=== PATIENT | male | born 1970 | race Caucasian/White ===

== ENCOUNTER 2021-07-25 20:17 | Emergency (ER) | payer OTHER ==
[2021-07-25] MEDS ORDERED: Morphine 2 MG/ML SYRINGE IVPUSH ONE ×2 (20:23→20:40)
[2021-07-25] MEDS ORDERED: Sodium Chloride 0.9% 10 ML Syringe FLUSH PRN (20:23)
[2021-07-25] MEDS ORDERED: Sodium Chloride 0.9% 1,000 ML IV SCH (20:30)
[2021-07-25] MEDS ORDERED: HYDROmorphone 2 MG/ML SDV IVPUSH ONE ×2 (20:48→21:58)
[2021-07-25] MEDS ORDERED: Ondansetron 4 MG/2 ML SDV IVPUSH ONE (21:15)
[2021-07-25] MEDS ORDERED: Propofol 200 MG/20 ML SDV IVPUSH ONE (21:20)
[2021-07-25] MEDS ORDERED: ceFAZolin 2 GM in Sodium Chloride 0.9% 100 ML IV ONE (22:14)
[2021-07-25] MEDS ORDERED: Diphtheria,Pertussis(Acell),Tetanus Vaccine 0.5 ML SDV IM ONE (22:56)
== END 2021-07-26 00:45 ==
LOC: LB.ED 20:17
DX: S53.105A Unspecified dislocation of left ulnohumeral joint, initial encounter (principal); S51.002A Unspecified open wound of left elbow, initial encounter; Z23 Encounter for immunization; Z20.822 Contact with and (suspected) exposure to COVID-19; W18.2XXA Fall in (into) shower or empty bathtub, initial encounter
CPT/HCPCS: 24600; 72020; 73020-LT; 73070-LT; 90471; 90715; 96365; 96375; 96376; 99284; 99285-25; J0690; J1170; J2270; J2405; J2704; J3490; J7030; U0002